=== PATIENT | female | born 2000 | race Caucasian/White ===

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

== ENCOUNTER 2023-06-13 05:52 | Day surgery (SDC) | payer OTHER, SELFPAY ==
[2023-06-06 17:02] LABS: Hematocrit 40.5 % (37-47); Hemoglobin 13.1 g/dL (12.0-15.0); Mean Corp Hgb Conc 32.3 g/dL (32-36); Mean Corpuscular Hgb 27.5 pg (27.0-32.0); Mean Corpuscular Volume 84.9 fL (81-99); Mean Platelet Vol. 9.7 fl (6.2-12.0); Platelet Count 344 K/mm3 (150-450); RBC Distribution Width CV 13.3 % (11.6-14.6); RBC Distribution Width SD 41.2 fl (35.1-43.9); Red Blood Count 4.77 M/mm3 (4.2-5.4); White Blood Count 13.6 K/mm3 (4.4-11.0)
[2023-06-13 06:24] VITALS: BP 116/59; PULSE 80; RESP 16; TEMP 36.9; O2SAT 100; BMI 39.9
[2023-06-13 06:25] LABS: Internal QC Validated? YES +Cl - CLEAR BKGD; Pregnancy, Urine Negative Negative
[2023-06-13] MEDS: Lactated Ringers 1,000 ML 15 ML IV (06:35)
--- NOTE | 2023-06-13 07:30 | FALS_PTH ---
PATIENT: MELCHOR HICKS #:[id number] [place] [facility] [place][id number] AGE/SX: 23/F ROOM: RE06/13/[address]: Dr. Jessa Moffett DO : 2000 BED: DIS: 06/13/2023 SPEC #: [id number] RECD: 06/13/23 10:41 STATUS: MELVINA CASTELLANOS #: [id number] ALEXANDER: 06/13/23 07:[address]: Jessa Moffett DEPT: SURGICAL PATHOLOGY RECD BY: Jakcie Cortez ENTERED: 06/13/23 12:17 SP TYPE: FALL TUBES OTHR DR: Dr. Nola Edward MD Tissues: Fallopian tube Procedures: Surgery Specimen Level II HEADER OPERATION: Laparoscopic salpingectomy PRE-OP DIAGNOSIS: Elective sterilization TISSUE SUBMITTED: Bilateral fallopian tubes MICROSCOPIC DIAGNOSIS Bilateral fallopian tubes, salpingectomy: Bilateral fallopian tubes, no pathologic diagnosis. SJ:jde 06/14/2023 MICROSCOPIC DESCRIPTION Slides are reviewed. GROSS DESCRIPTION Received in fixative is one container labeled with the patient's name and designated bilateral fallopian tubes. The specimen consists of bilateral fallopian tubes including fimbrial ends measuring 7.0 cm in length and 0.6 cm in diameter and 6.5 cm in length and 0.7 cm in diameter. A detached fragment of fimbrial end is also noted measuring 1.0 x 0.6 x 0.5 cm. The fallopian tubes are not identified as right or left. Sections reveal unremarkable cut surfaces. Electric Meter Installer Helper sections are submitted in two cassettes as follows: 1 - fallopian tube, 2 - second fallopian tube and also the detached fragment of fimbrial end. / LEO:jed 06/13/2023 TC:4 CPT: 34641 x2
[2023-06-13] MEDS: Bupivacaine Mpf 0.5% 30 ML VIAL (08:00)
--- NOTE | 2023-06-13 08:37 | PCM.OPRPT ---
Problems Associated Problem List Diagnoses (1) Request for sterilization: Report of Operation Date of Procedure: 06/13/23 Pre-Operative Diagnosis: Request for sterilization Post-Operative Diagnosis: Request for sterilization Surgery/Procedure Performed:: Laparoscopic bilateral salpingectomy Description of Surgical Findings:: Normal appearing uterus and bilateral adnexa Surgeon: Jessa Moffett multiple drum sander: Roseline Nam MS3 Type of Anesthesia: General Special Medications: None Specimen's removed: Bilateral salpingectomy Drains: None Estimated Blood Loss (mL): < 50 Fluids Replaced: 1 L Description of Procedure: The patient was taken to the operating room where she was prepped and draped under general anesthesia in the dorsal lithotomy position using yellowfin stirrups. A weighted speculum was placed in the vagina to expose the cervix. The anterior lip of the cervix was grasped with a single-tooth tenaculum. A uterine manipulator was placed. The weighted speculum and single-tooth tenaculum were removed from the vagina. Gloves were changed and attention was turned to the abdominal portion of the procedure. Local was infiltrated at all port sites. An infraumbilical incision was made to accommodate a 5 mm port. The 5 mm port was placed under direct visualization using the laparoscope. Once confirmed intraperitoneal, CO2 insufflation was initiated. No injury was noted upon entry. The patient was placed in Trendelenburg position. A right lateral 5 mm port was placed. A left lateral 5 mm port was placed. The uterus was upheld from below. The left fallopiab tube was followed out to the fimbriated end. The LigaSure device was used to serially clamp, cauterize, and transect along the mesosalpinx until reaching the level of the cornua. Once at the level of the cornua the fallopian tube was transected and removed from the pelvis. The right fallopian tube was then followed out to the fimbriated end. The LigaSure device was used to serially clamp, cauterize, and transect along the mesosalpinx until reaching the level of the cornua. Once at the level of the cornua the fallopian tube was transected and removed from the pelvis. Bilateral fallopian tubes were sent to pathology for review. Hemostasis was confirmed. The abdomen was exsufflated and the ports were removed. The incisions were closed with Monocryl and glue. The uterine manipulator was removed from below and a vaginal sweep was performed. Instrument, sponge, sharp counts were correct and the patient was taken to the recovery room in stable condition. The customer marketing assistant Roseline Nam MS3 assisted with holding the camera, holding the fallopian tube, and closure. Grafts/Implants Used: None Procedure Start Time: 07:56 Procedure Stop Time: 08:35 Complications None Admit VTE Documentation VTE Present on Admission: No VTE Mechan Device Prophylaxis: SCD's
[2023-06-13 08:45] VITALS: BP 116/59; BP 143/80; PULSE 90; RESP 16; TEMP 36.1; O2SAT 100
--- NOTE | 2023-06-13 08:59 | DCINST_ITS ---
Discharge Instructions Diet Discharge Diet: No restrictions Activity Discharge Activity: May Drive (Once you are more than 24 hours out from surgery, and feel strong enough to slam on a brake or turn a steering wheel sharply) and May Shower (Once you are more than 24 hours out from surgery) May resume sexual activity in: 1 week (No soaking in water and nothing in the vagina for 1 week while you are having vaginal bleeding) Ice area for (Minutes): 15 Weight Bearing Status: Weight bearing as tolerated Lifting Restrictions: Nothing greater than 10-15 lbs for 1 week Dressing / Incision Call your doctor if your incision/area has: Continuous Slow Oozing, Sudden Increased Bleeding, Increased Pain/ Swelling, Increased Redness, Foul Smelling Discharge and Swelling at the incision site Call your doctor if you observe: Fever of 101 or Higher, Coldness, Increased Pain, Numbness or Tingling, Change in Color, Inability to urinate, Inability to have a bowel movement, Using more than 1 pad per hour, Shortness of breath, Dizziness, Fainting spells, Swelling in the ankles, Chest pain, Increased palpitations (irregular heartbeat), Calf discomfort and Uncontrolled pain Suture Line Care: Avoid Pulling/Pushing and Avoid Pinching/Bending Remove Dressing in: leave until fall off Cleanse incision/area with: Soap & Water Follow Up Care Please Follow Up With: Jsesa Moffett DO When: 1 week for post operative check Test Results: Test results from this visit will be discussed in further detail at your follow- up appointment, if applicable. Discharge Plan Admission Primary Reason for Your Visit: surgery Attending Provider: Jessa Moffett Primary Care Provider: Nola Edward Discharge Orders/Prescriptions Prescriptions: New oxycodone 5 mg capsule 5 mg PO Q6H PRN (Reason: pain) 7 Days Qty: 10 0RF Continued fluticasone propionate 44 mcg/actuation HFA aerosol inhaler 2 puff INHALATION DAILY Patient Comments: INHALE 2 PUFFS INSTRUCTED TWICE DAILY. VIA SPACER THEN RINSE AND GARGLE MOUTH WITH WATER. fluticasone propionate [24 Hour Allergy Relief] 50 mcg/actuation spray,suspension 1 spray intranasal DAILY PRN (Reason: allergy symptoms) Rx Instructions: administer into each nostril albuterol sulfate 90 mcg/actuation HFA aerosol inhaler 1 puff INHALATION Q4H PRN (Reason: shortness of breath or wheezing) Referrals / Follow Up: Care Physician,No Primary [Non-Staff] - Disposition Disposition (needs filled in before D/C Order can be placed): Home, Self Care
[2023-06-13 09:00] VITALS: BP 116/59; BP 142/85; PULSE 68; RESP 16; O2SAT 100
[2023-06-13 09:09] VITALS: BP 116/59; BP 131/74; PULSE 59; RESP 16; TEMP 36.5; O2SAT 100
[2023-06-13 10:18] VITALS: BP 116/59; BP 141/65; PULSE 66; RESP 18; TEMP 36.3; O2SAT 97
== END 2023-06-13 10:22 | disposition home or self-care (01) ==
LOC: SDC 05:53 → AC 06:00
PROVIDERS: PCP Pediatrics; Referring Provider Pediatrics; Visit Provider Obstetrics & Gynecology
PROC: (CPT 58661; principal; 2023-06-13 07:15)
DX: Z30.2 Encounter for sterilization (principal); J45.909 Unspecified asthma, uncomplicated
CPT/HCPCS: 58661; 00840; 36415; 81025; 85027; 86850; 86900; 86901; 88302; J7120; J2405